=== PATIENT | female | born 1995 | race Asian ===

== ENCOUNTER 2018-09-25 00:25 | Emergency (ER) | payer SELFPAY ==
--- NOTE | 2018-09-25 00:35 | ER Report ---
History and Physical Time Seen By MD: 00:35 Hx. of Stated Complaint: PATIENT STARTED HAVING NAUSEA/VOMITING/DIZZINESS WHEN STANDING UP, PAIN IN LOWER ABDOMEN. HPI/ROS CHIEF COMPLAINT: Abdominal pain HISTORY OF PRESENT ILLNESS: This is a 23-year-old female. 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 Started having nausea and vomiting with abdominal pain, worsens with standing up. Mainly in the lower abdomen but also somewhat in the epigastric area. Also with little dizziness and feeling hot and cold flashes at times, however no obvious fevers or chills. She denies any dysuria. No diarrhea. Allergies: Coded Allergies: No Known Drug Allergies (Unverified , 09/25/18) Reviewed Nurses Notes: Yes Hx Substance Use Disorder: No Constitutional Vital Sign - Last 24 Hours 09/25/18 09/25/18 09/25/18 09/25/18 00:29 00:30 00:40 01:14 Temp 98.8 Pulse 86 78 Resp 20 B/P (MAP) 117/83 124/79 (94) 117/80 (92) Pulse Ox 95 93 O2 Delivery Room Air 09/25/18 09/25/18 09/25/18 09/25/18 01:30 01:40 01:45 02:11 Pulse ? B/P (MAP) 123/77 (92) 114/67 (83) Pulse Ox 94 95 09/25/18 09/25/18 09/25/18 09/25/18 02:15 02:30 03:00 03:30 Pulse 90 ??? B/P (MAP) 114/67 (83) 110/58 (75) 111/57 (75) Pulse Ox 94 93 Intake and Output 09/24/18 09/24/18 09/25/18 15:00 23:00 07:00 Intake Total 1000 ml Balance 1000 ml Physical Exam General Appearance: The patient is alert. Having some acute distress because of the nausea and the pain Eyes: Pupils are equal, round. No pallor, injection or icterus. ENT: Mucous membranes are moist. Normal oral mucosa. Posterior oropharynx is normal. Neck: Supple and non tender. Respiratory: Lungs are clear to auscultation. Cardiovascular: Regular rate and rhythm. No murmurs, gallops or rubs. Normal capillary refill. Gastrointestinal: Abdomen is soft. Tender throughout mainly in the lower suprapubic and left lower quadrant area but somewhat in the epigastric area as well. Nondistended. Guarding but no rebound. Hyperactive bowel sounds. Neurological: Alert and oriented x3. Skin: Warm and dry. Musculoskeletal: No pain with palpating the back/spine DIFFERENTIAL DIAGNOSIS: After history and physical exam, differential diagnosis was considered for abdominal pain including but not limited to constipation, enteritis, colitis, gastroenteritis and urinary tract infection. Medical Decision Making Data Points Result Diagram: 09/25/1810609/25/18106 Laboratory Hematology Test 09/25/18 01:00 09/25/18 01:07 Urine Color Yellow Urine Clarity Clear Urine pH 9.0 pH (4.8-9.5) Urine Specific [place] 1.023 Urine Protein 30 mg/dL (NEGATIVE) Urine Glucose (UA) Negative mg/dL (NEGATIVE) Urine Ketones Trace mg/dL (NEGATIVE) Urine Blood Negative (NEGATIVE) Urine Nitrite Negative (NEGATIVE) Urine Bilirubin Negative (NEGATIVE) Urine Urobilinogen Negative mg/dL (0.2-1.9) Urine Leukocyte Esterase Trace (NEGATIVE) Urine RBC 2 /HPF (0-2/HPF) Urine WBC 2 /HPF (0-5/HPF) Urine Squamous Epithelial Cells Many /LPF (</=FEW) Urine Transitional Epithelial Cells Few /LPF (NONE-FEW) Urine Bacteria Few /HPF (NONE-FEW) Urine Mucus Few /HPF (NONE-FEW) Red Blood Count 4.59 M/uL (4.17-5.56) Mean Corpuscular Volume 87.6 fL (80.0-96.0) Mean Corpuscular Hemoglobin 29.4 pg (26.0-33.0) Mean Corpuscular Hemoglobin Concent 33.6 g/dL (32.0-36.0) Red Cell Distribution Width 13.6 % (11.5-14.5) Mean Platelet Volume 10.7 fL (7.2-11.1) Neutrophils (%) (Auto) 80.9 % (39.4-72.5) Lymphocytes (%) (Auto) 9.2 % (17.6-49.6) Monocytes (%) (Auto) 4.3 % (4.1-12.4) Eosinophils (%) (Auto) 4.5 % (0.4-6.7) Basophils (%) (Auto) 1.1 % (0.3-1.4) Nucleated RBC Relative Count (auto) 0.1 /100WBC Neutrophils # (Auto) 7.1 K/uL (2.0-7.4) Lymphocytes # (Auto) 0.8 K/uL (1.3-3.6) Monocytes # (Auto) 0.4 K/uL (0.3-1.0) Eosinophils # (Auto) 0.4 K/uL (0.0-0.5) Basophils # (Auto) 0.1 K/uL (0.0-0.1) Nucleated RBC Absolute Count (auto) 0.01 K/uL Sodium Level 139 mmol/L (137-145) Potassium Level 3.5 mmol/L (3.5-5.0) Chloride Level 105 mmol/L (98-107) Carbon Dioxide Level 22 mmol/L (22-31) Blood Urea Nitrogen 12 mg/dl (7-18) Creatinine 0.60 mg/dl (0.52-1.04) Glomerular Filtration Rate Calc > 60.0 Random Glucose 114 mg/dl (75-110) Calcium Level 9.2 mg/dl (8.4-10.2) Total Bilirubin 0.4 mg/dl (0.2-1.3) Aspartate Amino Transf (AST/SGOT) 17 U/L (0-35) Alanine Aminotransferase (ALT/SGPT) 14 U/L (0-56) Alkaline Phosphatase 73 U/L (0-126) Total Protein 8.3 g/dl (6.3-8.2) Albumin 4.7 g/dl (3.5-5.0) Amylase Level 74 U/L (0-110) Lipase 122 U/L (23-300) Human Chorionic Gonadotropin, Qual Negative (NEGATIVE) Influenza Virus Type A (PCR) Negative (NEGATIVE) Influenza Virus Type B (PCR) Negative (NEGATIVE) Chemistry Test 09/25/18 01:00 09/25/18 01:07 Urine Color Yellow Urine Clarity Clear Urine pH 9.0 pH (4.8-9.5) Urine Specific [place] 1.023 Urine Protein 30 mg/dL (NEGATIVE) Urine Glucose (UA) Negative mg/dL (NEGATIVE) Urine Ketones Trace mg/dL (NEGATIVE) Urine Blood Negative (NEGATIVE) Urine Nitrite Negative (NEGATIVE) Urine Bilirubin Negative (NEGATIVE) Urine Urobilinogen Negative mg/dL (0.2-1.9) Urine Leukocyte Esterase Trace (NEGATIVE) Urine RBC 2 /HPF (0-2/HPF) Urine WBC 2 /HPF (0-5/HPF) Urine Squamous Epithelial Cells Many /LPF (</=FEW) Urine Transitional Epithelial Cells Few /LPF (NONE-FEW) Urine Bacteria Few /HPF (NONE-FEW) Urine Mucus Few /HPF (NONE-FEW) White Blood Count 8.7 k/uL (4.5-11.0) Red Blood Count 4.59 M/uL (4.17-5.56) Hemoglobin 13.5 g/dL (12.0-16.0) Hematocrit 40.2 % (34.0-47.0) Mean Corpuscular Volume 87.6 fL (80.0-96.0) Mean Corpuscular Hemoglobin 29.4 pg (26.0-33.0) Mean Corpuscular Hemoglobin Concent 33.6 g/dL (32.0-36.0) Red Cell Distribution Width 13.6 % (11.5-14.5) Platelet Count 170 K/uL (150-450) Mean Platelet Volume 10.7 fL (7.2-11.1) Neutrophils (%) (Auto) 80.9 % (39.4-72.5) Lymphocytes (%) (Auto) 9.2 % (17.6-49.6) Monocytes (%) (Auto) 4.3 % (4.1-12.4) Eosinophils (%) (Auto) 4.5 % (0.4-6.7) Basophils (%) (Auto) 1.1 % (0.3-1.4) Nucleated RBC Relative Count (auto) 0.1 /100WBC Neutrophils # (Auto) 7.1 K/uL (2.0-7.4) Lymphocytes # (Auto) 0.8 K/uL (1.3-3.6) Monocytes # (Auto) 0.4 K/uL (0.3-1.0) Eosinophils # (Auto) 0.4 K/uL (0.0-0.5) Basophils # (Auto) 0.1 K/uL (0.0-0.1) Nucleated RBC Absolute Count (auto) 0.01 K/uL Glomerular Filtration Rate Calc > 60.0 Calcium Level 9.2 mg/dl (8.4-10.2) Total Bilirubin 0.4 mg/dl (0.2-1.3) Aspartate Amino Transf (AST/SGOT) 17 U/L (0-35) Alanine Aminotransferase (ALT/SGPT) 14 U/L (0-56) Alkaline Phosphatase 73 U/L (0-126) Total Protein 8.3 g/dl (6.3-8.2) Albumin 4.7 g/dl (3.5-5.0) Amylase Level 74 U/L (0-110) Lipase 122 U/L (23-300) Human Chorionic Gonadotropin, Qual Negative (NEGATIVE) Influenza Virus Type A (PCR) Negative (NEGATIVE) Influenza Virus Type B (PCR) Negative (NEGATIVE) Urinalysis Test 09/25/18 01:00 Urine Color Yellow Urine Clarity Clear Urine pH 9.0 pH (4.8-9.5) Urine Specific [place] 1.023 Urine Protein 30 mg/dL (NEGATIVE) Urine Glucose (UA) Negative mg/dL (NEGATIVE) Urine Ketones Trace mg/dL (NEGATIVE) Urine Blood Negative (NEGATIVE) Urine Nitrite Negative (NEGATIVE) Urine Bilirubin Negative (NEGATIVE) Urine Urobilinogen Negative mg/dL (0.2-1.9) Urine Leukocyte Esterase Trace (NEGATIVE) Urine RBC 2 /HPF (0-2/HPF) Urine WBC 2 /HPF (0-5/HPF) Urine Squamous Epithelial Cells Many /LPF (</=FEW) Urine Transitional Epithelial Cells Few /LPF (NONE-FEW) Urine Bacteria Few /HPF (NONE-FEW) Urine Mucus Few /HPF (NONE-FEW) EKG/Imaging Imaging CHEST PA LAT COMPARISONS: None. ADDITIONAL PERTINENT HISTORY: Fever FINDINGS: Cardiomediastinal silhouette: Negative. Pulmonary vasculature: Negative. Lung panda: Negative. Pleural spaces: Negative. Osseous structures: Negative. Surrounding soft tissues: Negative. IMPRESSION: No evidence of acute cardiopulmonary disease. Report Dictated By: Armando Barbosa MD at 09/25/2018 2:42 AM COMPUTED TOMOGRAPHY ABDOMEN AND PELVIS WITH INTRAVENOUS CONTRAST DATE OF EXAM: 09/25/2018 1:36 AM INDICATION: Fevers, epigastric and lower abdominal pain. COMPARISON: None available. TECHNIQUE: Contrast enhanced abdomen and pelvis CT performed during the injection of 75 ml of Isovue 370. Sagittal and coronal reconstructions were performed. One of the following dose optimization techniques was utilized in the performance of this exam: Automated exposure control; adjustment of the mA and/or kV according to the patient's size; or use of an iterative reconstruction technique. Specific details can be referenced in the facility's radiology CT exam operational policy. FINDINGS: Lung bases: Clear. Liver and hepatic vasculature: Normal. Gallbladder and bile ducts: Question hypoattenuating calculi in the gallbladder. No apparent acute inflammation. Bile ducts are normal. Spleen: Normal. Pancreas: Normal. Adrenals: Normal. Kidneys, ureters and bladder: Normal. Retroperitoneum and aorta: Normal caliber aorta. No adenopathy. GI tract, mesentery and peritoneum: Large amount of stool in the distal sigmoid colon. No evidence of obstruction. No pneumatosis, pneumoperitoneum or free fluid. Normal appendix. Uterus and adnexa: Probable dominant follicle in the right ovary, otherwise unremarkable. Bones and soft tissues: No acute abnormality or suspicious lesion. IMPRESSION: 1. Large amount of stool in the distal sigmoid colon suspicious for constipation/impaction. 2. Question hypoattenuating cholelithiasis. No evidence of cholecystitis. Report Dictated By: Jimmy Comer MD at 09/25/2018 2:29 AM ED Course/Re-evaluation Clinical Indication for ER IV: Hydration, IV Access ED Course Patient given fluids and Zofran initially. Seemed to improve quite a bit. Labs and CT scan were unremarkable other than constipation. Reviewed this with the patient we decided to go ahead and use some magnesium citrate at home to help with this. Decision to Disposition Date: Sep 25, 2018 Decision to Disposition Time: 03:23 Depart Departure Latest Vital Signs Vital Signs Date Time Temp Pulse Resp B/P (MAP) Pulse Ox O2 Delivery O2 Flow Rate FiO2 09/25/18 03:30 111/57 (75) 09/25/18 02:30 ??? 93 09/25/18 00:29 98.8 20 Room Air Impression: Primary Impression: Constipation Condition: Improved Disposition: HOME OR SELF-CARE Patient Instructions: Constipation (ED) Additional Instructions: Your abdominal pain tonight seems to have been caused by constipation and increased gas in the bowels. Increase fluid intake. Consider starting a daily dose of fiber or Miralax. Tonight, we are sending home a dose of Magnesium Citrate, a small bottle of liquid you will drink and will help to have you have a bowel movement and relieve your pain. Problem Qualifiers Primary Impression: Constipation Constipation type: unspecified constipation type Qualified Codes: K59.00 - Constipation, unspecified SABINA CATES MD Sep 25, 2018 00:36
[2018-09-25] MEDS ORDERED: ONDANSETRON 4 MG/2 ML VIAL IVP ONE (00:45)
[2018-09-25] MEDS ORDERED: NS(*) 0.9% 1000 ML BAG 1,000 ML IV ONE (00:45)
[2018-09-25 01:30] LABS: PLATELET COUNT, AUTOMATED 170 K/uL (150-450)
--- NOTE | 2018-09-25 02:47 | RADIOLOGY IMAGING REPORT ---
FACILITY: [facility] [place] PATIENT NAME: Ramana Herron : 1995 MR: [id number] V: [id number] EXAM DATE: ORDERING PHYSICIAN: SABINA CATES TECHNOLOGIST: Location: [facility] Patient: Ramana Herron : 1995 Visit/Account:[id number] Date of Sevice: 09/25/2018 COMPUTED TOMOGRAPHY ABDOMEN AND PELVIS WITH INTRAVENOUS CONTRAST DATE OF EXAM: 09/25/2018 1:36 AM INDICATION: Fevers, epigastric and lower abdominal pain. COMPARISON: None available. TECHNIQUE: Contrast enhanced abdomen and pelvis CT performed during the injection of 75 ml of Isovue 370. Sagittal and coronal reconstructions were performed. One of the following dose optimization te chfide was utilized in the performance of this exam: Automated exposure control; adjustment of the mA and/or kV according to the patient's size; or use of an iterative reconstruction technique. Spec [facility] details can be referenced in the facility's radiology CT exam operational policy. FINDINGS: Lung bases: Clear. Liver and hepatic vasculature: Normal. Gallbladder and bile ducts: Question hypoattenuating calculi in the gallbladder. No apparent acute inflammation. Bile ducts are normal. Spleen: Normal. Pancreas: Normal. Adrenals: Normal. Kidneys, ureters and bladder: Normal. Retroperitoneum and aorta: Normal caliber aorta. No adenopathy. GI tract, mesentery and peritoneum: Large amount of stool in the distal sigmoid colon. No evidence of obstruction. No pneumatosis, pneumoperitoneum or free fluid. Normal appendix. Uterus and adnexa: Probable dominant follicle in the right ovary, otherwise unremarkable. Bones and soft tissues: No acute abnormality or suspicious lesion. IMPRESSION: 1. Large amount of stool in the distal sigmoid colon suspicious for constipation/impaction. 2. Question hypoattenuating cholelithiasis. No evidence of cholecystitis. Report Dictated By: Jimmy Comer MD at 09/25/2018 2:29 AM Report E-Signed By: Jimmy Comer MD at 09/25/2018 2:43 AM WSN:[id number]
--- NOTE | 2018-09-25 02:48 | RADIOLOGY IMAGING REPORT ---
FACILITY: [facility] [place] PATIENT NAME: Ramana Herron : 1995 MR: [id number] V: [id number] EXAM DATE: ORDERING PHYSICIAN: SABINA CATES TECHNOLOGIST: Location: [facility] Patient: Ramana Herron : 1995 Visit/Account:[id number] Date of Sevice: 09/25/2018 CHEST PA LAT COMPARISONS: None. ADDITIONAL PERTINENT HISTORY: Fever FINDINGS: Cardiomediastinal silhouette: Negative. Pulmonary vasculature: Negative. Lung panda: Negative. Pleural spaces: Negative. Osseous structures: Negative. Surrounding soft tissues: Negative. IMPRESSION: No evidence of acute cardiopulmonary disease. Report Dictated By: Armando Barbosa MD at 09/25/2018 2:42 AM Report E-Signed By: Armando Barbosa MD at 09/25/2018 2:43 AM WSN:[id number]
[2018-09-25 03:30] VITALS: BP 111/57
[2018-09-25] MEDS ORDERED: MAGNESIUM CITRATE 300 ML BTL PO ONE (03:35)
== END 2018-09-25 03:40 | disposition home or self-care (01) ==
LOC: ER 00:34
DX: K59.00 Constipation, unspecified (principal)
CPT/HCPCS: 71046; 74177; 81001; 82150; 83690; 84703; 85025; 87502; 96374; 99284; J2405; J7030; 82040; 82247; 82310; 82374; 82435; 82565; 82947; 84075; 84132; 84155; 84295; 84450; 84460; 84520; Q9967

== ENCOUNTER → 2018-09-25 | Outpatient (CLI) | payer SELFPAY | LOC: AMB 00:13 | PROVIDERS: ATTEND Nurse Practitioner | DX: R10.9 Unspecified abdominal pain (principal) | CPT/HCPCS: A0425; A0429 ==